=== PATIENT | male | born 1945 | race Caucasian/White ===

== ENCOUNTER 2018-06-19 08:03 | Emergency (ER) | payer OTHER ==
--- NOTE | 2018-06-19 08:36 | ER ---
Nurse's Notes [facility] Name: Marcin Elliott Age: 72 yrs Sex: Male : 1945 Arrival Date: 06/19/2018 Time: 08:07 Bed 5 Private MD: Out, [facility] Diagnosis: Otitis media, unspecified, right ear Presentation: 06/19 08:09 Presenting complaint: Patient states: L ear pain. 08:10 Transition of care: patient was not received from another setting of care. Onset of symptoms was June 16, 2018. Risk Assessment: Do you want to hurt yourself or someone else? Patient reports no desire to harm self or others. Initial Sepsis Screen: Does the patient meet any 2 criteria? No. Patient's initial sepsis screen is negative. Does the patient have a suspected source of infection? No. Patient's initial sepsis screen is negative. Care prior to arrival: None. 08:10 Method Of Arrival: Ambulatory 08:10 Acuity: LUIS ALFREDO 5 ch Triage Assessment: 08:10 General: Appears in no apparent distress. comfortable, Behavior is calm, cooperative, ch appropriate for age. Pain: Complains of pain in right ear Pain currently is 3 out of 10 on a pain scale. EENT: Reports pain in right ear. Historical: - Allergies: 08:10 No Known Allergies; ch - Home Meds: 08:10 jenumet [Active]; pravastatin 10 mg oral tab 1 tab once daily [Active]; Actos 15 mg ch Oral tab 1 tab once daily [Active]; - PMHx: 08:10 Diabetes - NIDDM; Myocardial infarction; ear wax build up; ch - PSHx: 08:10 cardiac stent; Tonsillectomy; ch - Immunization history:: Adult Immunizations up to date. - Social history:: Smoking status: Patient/guardian denies using tobacco. - Ebola Screening: : Patient negative for fever greater than or equal to 101.5 degrees Fahrenheit, and additional compatible Ebola Virus Disease symptoms Patient denies exposure to infectious person Patient denies travel to an Ebola-affected area in the 21 days before illness onset No symptoms or risks identified at this time. Screenin:18 Abuse screen: Denies threats or abuse. Denies injuries from another. Nutritional sv screening: No deficits noted. Tuberculosis screening: No symptoms or risk factors identified. Fall Risk None identified. Assessment: 08:18 General: Appears in no apparent distress. comfortable, Behavior is calm, cooperative, sv appropriate for age. Pain: Complains of pain in right ear Pain currently is 3 out of 10 on a pain scale. Quality of pain is described as tender, Is continuous. Neuro: Level of Consciousness is awake, alert, obeys commands, Oriented to person, place, time, situation, Moves all extremities. Full function Gait is steady. Respiratory: Respiratory effort is even, unlabored, Respiratory pattern is regular, symmetrical. EENT: Reports pain in right ear. Derm: Skin is pink, warm \T\ dry. 08:39 Reassessment: Patient appears in no apparent distress at this time. No changes from tw2 previously documented assessment. Patient and/or family updated on plan of care and expected duration. Pain level reassessed. Patient is alert, oriented x 3, equal unlabored respirations, skin warm/dry/pink. Vital Signs: 08:10 BP 144 / 84; Pulse 62; Resp 18; Temp 98.3; Pulse Ox 99% on R/A; Weight 82.55 kg; Height ch 6 ft. (182.88 cm); Pain 3/10; 08:10 Body Mass Index 24.68 (82.55 kg, 182.88 cm) ED Course: 08:07 Patient arrived in ED. sb2 08:07 Out, [facility] is Private Physician. sb2 08:10 Arm band placed on left wrist. Patient placed in an exam room, on a stretcher. ch 08:11 Triage completed. ch 08:11 Jung Villalobos PA is PHCP. cp 08:11 Frandy Vallejo MD is Attending Physician. cp 08:18 Jelly Rothman, CLEMENT is Primary Nurse. sv 08:18 Patient has correct armband on for positive identification. Bed in low position. Door sv closed. Head of bed elevated. 08:35 Jelly Esposito MD is Referral Physician. cp 08:40 No provider procedures requiring assistance completed. Patient did not have IV access tw2 during this emergency room visit. Administered Medications: No medications were administered Outcome: 08:36 Discharge ordered by MD. cp 08:40 Discharged to home ambulatory. tw2 08:40 Condition: stable 08:40 Discharge instructions given to patient, Instructed on discharge instructions, follow up and referral plans. medication usage, Demonstrated understanding of instructions, follow-up care, medications, Prescriptions given X 2. 08:41 Patient left the ED. tw2 Signatures: Kiana Crain, RN RN Jelly Stevens RN RN sv Page, Corey, PA PA cp Wise, Tara, RN RN tw2 Lavinia Drake sb2
--- NOTE | 2018-06-19 08:36 | EDPHYS ---
Physician Documentation [facility] Name: Marcin Elliott Age: 72 yrs Sex: Male : 1945 Arrival Date: 06/19/2018 Time: 08:07 Bed 5 Private MD: Out, [facility] ED Physician Frandy Vallejo HPI: 06/19 08:28 This 72 yrs old Male presents to ER via Ambulatory with complaints of Ear cp Pain. 08:28 The patient presents with pain, that is acute. The complaints affect the right ear. cp Onset: The symptoms/episode began/occurred 3 day(s) ago. Associated signs and symptoms: Pertinent negatives: cough, fever, rhinorrhea, sinus trouble, sore throat. Severity of symptoms: in the emergency department the symptoms have improved mildly. Patient reports history of cerumen impaction. Flushed ear at home with bulb syringe and believes he may have flushed insect out of ear canal. Historical: - Allergies: 08:10 No Known Allergies; ch - Home Meds: 08:10 jenumet [Active]; pravastatin 10 mg oral tab 1 tab once daily [Active]; Actos 15 mg ch Oral tab 1 tab once daily [Active]; - PMHx: 08:10 Diabetes - NIDDM; Myocardial infarction; ear wax build up; ch - PSHx: 08:10 cardiac stent; Tonsillectomy; ch - Immunization history:: Adult Immunizations up to date. - Social history:: Smoking status: Patient/guardian denies using tobacco. - Ebola Screening: : Patient negative for fever greater than or equal to 101.5 degrees Fahrenheit, and additional compatible Ebola Virus Disease symptoms Patient denies exposure to infectious person Patient denies travel to an Ebola-affected area in the 21 days before illness onset No symptoms or risks identified at this time. ROS: 08:30 Eyes: Negative for injury, pain, redness, and discharge. cp 08:30 Constitutional: Negative for body aches, chills, fever, poor PO intake. 08:30 ENT: Positive for ear pain, Negative for drainage from ear(s), rhinorrhea, sinus pain, sore throat, difficulty swallowing, difficulty handling secretions. 08:30 Respiratory: Negative for cough, shortness of breath, wheezing. 08:30 Abdomen/GI: Negative for abdominal pain, nausea, vomiting, and diarrhea. 08:30 Skin: Negative for cellulitis, rash. 08:30 Neuro: Negative for altered mental status, headache, weakness. 08:30 All other systems are negative. Exam: 08:31 Head/Face: Normocephalic, atraumatic. cp 08:31 Constitutional: The patient appears in no acute distress, alert, awake, non-toxic, well developed, well nourished. 08:31 Eyes: Periorbital structures: appear normal, Conjunctiva: normal, no exudate, no injection, Sclera: no appreciated abnormality, Lids and lashes: appear normal, bilaterally. 08:31 ENT: External ear(s): are unremarkable, Ear canal(s): are normal, clear, TM's: bulging, is not appreciated, bilaterally, erythema, that is mild, on the right, Examination of the other ear shows no obvious abnormality, Nose: is normal, Mouth: Lips: moist, Oral mucosa: pink and intact, moist, Posterior pharynx: is normal, airway is patent, no erythema, no exudate, Voice: is normal. 08:31 Neck: ROM/movement: is normal, is supple, without pain, no range of motions limitations, no nuchal rigidity, Lymph nodes: no appreciated lymphadenopathy. 08:31 Chest/axilla: Inspection: normal, Palpation: is normal, no crepitus, no tenderness. 08:31 Cardiovascular: Rate: normal, Rhythm: regular. 08:31 Respiratory: the patient does not display signs of respiratory distress, Respirations: normal, no use of accessory muscles, no retractions, no splinting, no tachypnea, Breath sounds: are clear throughout, no decreased breath sounds, no stridor, no wheezing. 08:31 Abdomen/GI: Exam negative for discomfort, distension, guarding. 08:31 Skin: cellulitis, is not appreciated, no rash present. Vital Signs: 08:10 BP 144 / 84; Pulse 62; Resp 18; Temp 98.3; Pulse Ox 99% on R/A; Weight 82.55 kg; Height ch 6 ft. (182.88 cm); Pain 3/10; 08:10 Body Mass Index 24.68 (82.55 kg, 182.88 cm) ch MDM: 08:13 Patient medically screened. cp 08:30 Differential diagnosis: otitis media, otitis externa, ruptured TM, foreign body, acute cp otalgia, cerumen impaction, barotrauma . 08:35 Data reviewed: vital signs, nurses notes, and as a result, I will discharge patient. cp 08:35 Counseling: I had a detailed discussion with the patient and/or guardian regarding: the cp historical points, exam findings, and any diagnostic results supporting the discharge/admit diagnosis, to return to the emergency department if symptoms worsen or persist or if there are any questions or concerns that arise at home. Administered Medications: No medications were administered Disposition: 10:32 Co-signature as Attending Physician, Frandy Vallejo MD I agree with the assessment and kdr plan of care. Disposition: 06/19/18 08:36 Discharged to Home. Impression: Otitis media, unspecified, right ear. - Condition is Stable. - Discharge Instructions: Otitis Media, Adult. - Prescriptions for Amoxicillin 875 mg Oral Tablet - take 1 tablet by ORAL route every 12 hours for 10 days; 20 tablet. Ibuprofen 800 mg Oral Tablet - take 1 tablet by ORAL route every 8 hours As needed take with food; 30 tablet. - Medication Reconciliation Form, Thank You Letter, Antibiotic Education, Prescription Opioid Use form. - Follow up: Jelly Esposito MD; When: 2 - 3 days; Reason: symptoms continue. - Problem is new. - Symptoms are unchanged. Signatures: Kiana Crain, RN RN Frandy Vallejo MD MD [facility] Jung Villalobos PA PA cp Celeste Becker RN RN tw2 Corrections: (The following items were deleted from the chart) 08:41 08:36 06/19/2018 08:36 Discharged to Home. Impression: Otitis media, unspecified, right tw2 ear. Condition is Stable. Forms are Medication Reconciliation Form, Thank You Letter, Antibiotic Education, Prescription Opioid Use. Follow up: Jelly Esposito; When: 2 - 3 days; Reason: symptoms continue. Problem is new. Symptoms are unchanged. cp
== END 2018-06-19 08:41 | disposition home or self-care (01) ==
LOC: ER 08:03
DX: H66.91 Otitis media, unspecified, right ear (principal); E11.9 Type 2 diabetes mellitus without complications; Z95.828 Presence of other vascular implants and grafts
CPT/HCPCS: 99282

== ENCOUNTER 2018-06-30 08:13 | Emergency (ER) | payer OTHER ==
--- NOTE | 2018-06-30 09:15 | EDPHYS ---
Physician Documentation [facility] Name: Marcin Elliott Age: 72 yrs Sex: Male : 1945 Arrival Date: 06/30/2018 Time: 08:16 Bed 26 Private MD: Out, [facility] ED Physician Jung Altman HPI: 06/30 09:10 This 72 yrs old Male presents to ER via Ambulatory with complaints of Ear jasmina Pain. 09:10 The patient presents with pain, that is acute. The complaints affect the right ear. jasmina Onset: The symptoms/episode began/occurred 3 day(s) ago. Modifying factors: The symptoms are alleviated by nothing, the symptoms are aggravated by nothing. Associated signs and symptoms: The patient has no apparent associated signs or symptoms. Severity of symptoms: At their worst the symptoms were mild in the emergency department the symptoms are unchanged. The patient has experienced a previous episode. Historical: - Allergies: 08:30 No Known Allergies; ss - Home Meds: 08:30 Actos 15 mg Oral tab 1 tab once daily [Active]; pravastatin 10 mg Oral tab 1 tab once ss daily [Active]; jenumet [Active]; - PMHx: 08:30 Diabetes - NIDDM; ear wax build up; Myocardial infarction; ss - PSHx: 08:30 cardiac stent; Tonsillectomy; ss - Immunization history:: Adult Immunizations up to date. - Social history:: Smoking status: Patient/guardian denies using tobacco. - Ebola Screening: : Patient denies exposure to infectious person Patient denies travel to an Ebola-affected area in the 21 days before illness onset. ROS: 09:11 Constitutional: Negative for fever, chills, and weight loss, Eyes: Negative for injury, jasmina pain, redness, and discharge, Neck: Negative for injury, pain, and swelling, Cardiovascular: Negative for chest pain, palpitations, and edema, Respiratory: Negative for shortness of breath, cough, wheezing, and pleuritic chest pain, Abdomen/GI: Negative for abdominal pain, nausea, vomiting, diarrhea, and constipation, Back: Negative for injury and pain, : Negative for injury, bleeding, discharge, and swelling, MS/Extremity: Negative for injury and deformity, Skin: Negative for injury, rash, and discoloration, Neuro: Negative for headache, weakness, numbness, tingling, and seizure, Psych: Negative for depression, anxiety, suicide ideation, homicidal ideation, and hallucinations, Allergy/Immunology: Negative for hives, rash, and allergies, Endocrine: Negative for neck swelling, polydipsia, polyuria, polyphagia, and marked weight changes, Hematologic/Lymphatic: Negative for swollen nodes, abnormal bleeding, and unusual bruising. 09:11 ENT: Positive for ear pain. Exam: 09:11 Constitutional: This is a well developed, well nourished patient who is awake, alert, jasmina and in no acute distress. Head/Face: Normocephalic, atraumatic. Eyes: Pupils equal round and reactive to light, extra-ocular motions intact. Lids and lashes normal. Conjunctiva and sclera are non-icteric and not injected. Cornea within normal limits. Periorbital areas with no swelling, redness, or edema. Neck: Trachea midline, no thyromegaly or masses palpated, and no cervical lymphadenopathy. Supple, full range of motion without nuchal rigidity, or vertebral point tenderness. No Meningismus. Chest/axilla: Normal chest wall appearance and motion. Nontender with no deformity. No lesions are appreciated. Cardiovascular: Regular rate and rhythm with a normal S1 and S2. No gallops, murmurs, or rubs. Normal PMI, no JVD. No pulse deficits. Respiratory: Lungs have equal breath sounds bilaterally, clear to auscultation and percussion. No rales, rhonchi or wheezes noted. No increased work of breathing, no retractions or nasal flaring. Abdomen/GI: Soft, non-tender, with normal bowel sounds. No distension or tympany. No guarding or rebound. No evidence of tenderness throughout. Back: No spinal tenderness. No costovertebral tenderness. Full range of motion. Male : Normal genitalia with no discharge or lesions. Skin: Warm, dry with normal turgor. Normal color with no rashes, no lesions, and no evidence of cellulitis. 09:11 ENT: TM's: dullness, on the right. Vital Signs: 08:30 BP 143 / 68; Pulse 62; Resp 16; Temp 97.8(TE); Pulse Ox 99% on R/A; Weight 82.1 kg; ss Height 5 ft. 11 in. (180.34 cm); Pain 2/10; 08:30 Body Mass Index 25.24 (82.10 kg, 180.34 cm) MDM: 08:56 Patient medically screened. [facility] 09:13 Data reviewed: vital signs, nurses notes. [facility] Administered Medications: No medications were administered Disposition: 06/30/18 09:14 Discharged to Home. Impression: Type 2 diabetes mellitus - right ear pain. - Condition is Stable. - Discharge Instructions: Type 2 Diabetes Mellitus, Diagnosis, Adult. - Prescriptions for Tara- D 12 Hour 60-120 mg Oral Tablet Sustained Release 12 hr - take 1 tablet by ORAL route every 12 hours As needed; 20 tablet. - Medication Reconciliation Form, Thank You Letter, Antibiotic Education, Prescription Opioid Use form. - Follow up: Private Physician; When: 2 - 3 days; Reason: Recheck today's complaints, Continuance of care, Re-evaluation by your physician. - Problem is new. - Symptoms have improved. Signatures: Jung Altman MD MD cha Smirch, Shelby, RN RN ss Corrections: (The following items were deleted from the chart) 09:32 09:14 06/30/2018 09:14 Discharged to Home. Impression: Type 2 diabetes mellitus - right ss ear pain. Condition is Stable. Forms are Medication Reconciliation Form, Thank You Letter, Antibiotic Education, Prescription Opioid Use. Follow up: Private Physician; When: 2 - 3 days; Reason: Recheck today's complaints, Continuance of care, Re-evaluation by your physician. Problem is new. Symptoms have improved. [facility]
--- NOTE | 2018-06-30 09:15 | ER ---
Nurse's Notes [facility] Name: Marcin Elliott Age: 72 yrs Sex: Male : 1945 Arrival Date: 06/30/2018 Time: 08:16 Bed 26 Private MD: Out, [facility] Diagnosis: Type 2 diabetes mellitus-right ear pain Presentation: 06/30 08:27 Presenting complaint: Patient states: Seen 10 days ago and has taken a course of ss amoxicillin for otitis media to R ear. Pt reports that at the time of first visit, his pain was a 7/10. Patient reports pain feels much better, but is still a 2/10. Pt reports he has not followed up with Dr. Esposito as instructed on last discharge because he didn't "see that page". Transition of care: patient was not received from another setting of care. Onset of symptoms was May 2018. Risk Assessment: Do you want to hurt yourself or someone else? Patient reports no desire to harm self or others. Initial Sepsis Screen: Does the patient meet any 2 criteria? No. Patient's initial sepsis screen is negative. Does the patient have a suspected source of infection? No. Patient's initial sepsis screen is negative. Care prior to arrival: None. 08:27 Method Of Arrival: Ambulatory ss 08:27 Acuity: LUIS ALFREDO 5 ss Historical: - Allergies: 08:30 No Known Allergies; ss - Home Meds: 08:30 Actos 15 mg Oral tab 1 tab once daily [Active]; pravastatin 10 mg Oral tab 1 tab once ss daily [Active]; jenumet [Active]; - PMHx: 08:30 Diabetes - NIDDM; ear wax build up; Myocardial infarction; ss - PSHx: 08:30 cardiac stent; Tonsillectomy; ss - Immunization history:: Adult Immunizations up to date. - Social history:: Smoking status: Patient/guardian denies using tobacco. - Ebola Screening: : Patient denies exposure to infectious person Patient denies travel to an Ebola-affected area in the 21 days before illness onset. Screenin:27 Abuse screen: Denies threats or abuse. Denies injuries from another. Nutritional ss screening: No deficits noted. Tuberculosis screening: Never had TB. Fall Risk None identified. Assessment: 08:27 General: Appears in no apparent distress. comfortable, Behavior is calm, cooperative, ss Denies fever, feeling ill, fatigue, chills. Pain: Complains of pain in right ear Pain currently is 2 out of 10 on a pain scale. Quality of pain is described as aching. Neuro: Level of Consciousness is awake, alert, obeys commands, Oriented to person, place, time, situation. Cardiovascular: Capillary refill < 3 seconds is brisk in bilateral fingers Patient's skin is warm and dry. Respiratory: Airway is patent Respiratory effort is even, unlabored, Respiratory pattern is regular, symmetrical. GI: No signs and/or symptoms were reported involving the gastrointestinal system. EENT: Oral mucosa is moist. Derm: Skin is intact, is healthy with good turgor, Skin is dry. Musculoskeletal: Circulation, motion, and sensation intact. Range of motion: intact in all extremities, Swelling absent. Vital Signs: 08:30 BP 143 / 68; Pulse 62; Resp 16; Temp 97.8(TE); Pulse Ox 99% on R/A; Weight 82.1 kg; ss Height 5 ft. 11 in. (180.34 cm); Pain 2/10; 08:30 Body Mass Index 25.24 (82.10 kg, 180.34 cm) ED Course: 08:16 Patient arrived in ED. mr 08:16 Out, of Town is Private Physician. mr 08:27 Patient has correct armband on for positive identification. Bed in low position. Call ss light in reach. 08:30 Triage completed. 08:30 Arm band placed on right wrist. 08:56 Jung Altman MD is Attending Physician. [facility] 09:31 Renate Arango, CLEMENT is Primary Nurse. 09:31 No provider procedures requiring assistance completed. Patient did not have IV access ss during this emergency room visit. Administered Medications: No medications were administered Outcome: 09:14 Discharge ordered by . jasmina 09:31 Discharged to home ambulatory. 09:31 Condition: good 09:31 Discharge instructions given to patient, family, Instructed on discharge instructions, follow up and referral plans. medication usage, Demonstrated understanding of instructions, follow-up care, medications, Prescriptions given X 1. 09:32 Patient left the ED. Signatures: Jung Altman MD MD cha Rivera, Maria mr Renate Arango, RN RN
== END 2018-06-30 09:32 | disposition home or self-care (01) ==
LOC: ER 08:13
DX: E11.9 Type 2 diabetes mellitus without complications (principal); I25.2 Old myocardial infarction; Z95.818 Presence of other cardiac implants and grafts
CPT/HCPCS: 99282